=== PATIENT | male | born 1965 | race Hispanic/Latino ===

== ENCOUNTER 2018-11-13 18:46 | Inpatient (IN) | payer OTHER | END 2018-11-17 15:00 | disposition home or self-care (01) | LOC: 2BH 18:46 → 2DH 11-15 09:50 → 2CH 19:19 | PROC: B2161ZZ Fluoroscopy of Right and Left Heart using Low Osmolar Contrast (ICD-10-PCS; principal; ~2018-11-13) | PROC: 02703DZ Dilation of Coronary Artery, One Artery with Intraluminal Device, Percutaneous Approach (ICD-10-PCS; ~2018-11-13) | PROC: 06BQ4ZZ Excision of Left Saphenous Vein, Percutaneous Endoscopic Approach (ICD-10-PCS; ~2018-11-13) | PROC: 4A023N7 Measurement of Cardiac Sampling and Pressure, Left Heart, Percutaneous Approach (ICD-10-PCS; ~2018-11-13) | DX: I21.09 ST elevation (STEMI) myocardial infarction involving other coronary artery of anterior wall (principal); I25.110 Atherosclerotic heart disease of native coronary artery with unstable angina pectoris ==

== ENCOUNTER → 2022-07-12 | Outpatient (CLI) | payer SELFPAY ==
[~2022-07-12] MED LIST: ASPI-1005 PO; ATOR40TA69 PO; CLOP-31 PO; METO-391 PO
[2022-07-12 16:32] LABS: CHOLESTEROL 164 mg/dL (<200); HDL CHOLESTEROL 55 mg/dL (29-71); LDL DIRECT 76 mg/dL (0-99); TRIGLYCERIDES 190 mg/dL (30-200)
== END | disposition home or self-care (01) ==
LOC: LAB 13:51
PROVIDERS: ATTEND Internal Medicine Cardiovascular Disease
DX: E78.5 Hyperlipidemia, unspecified (principal)
CPT/HCPCS: 36415; 80061